=== PATIENT | female | born 1950 | race Two or more races ===

== ENCOUNTER 2018-04-25 22:08 | Emergency (ER) | payer SELFPAY ==
[~2018-04-25] VITALS: Ht 152.4 cm; Wt 68.0 kg
[2018-04-25 22:10] VITALS: BP 167/81
[2018-04-25] MEDS ORDERED: BACI/NEOM/POLY B OINT PKT 1 UDPKT PACKET TP ONE (23:30)
== END 2018-04-25 23:34 | disposition home or self-care (01) ==
LOC: ER 22:15
DX: L03.115 Cellulitis of right lower limb (principal); E11.9 Type 2 diabetes mellitus without complications; I10 Essential (primary) hypertension
CPT/HCPCS: A4606; Z7610